=== PATIENT | male | born 1995 | race Caucasian/White ===

== ENCOUNTER 2018-01-21 23:22 | Emergency (ER) | payer OTHER ==
[2018-01-21 23:34] VITALS: BP 137/78
[2018-01-22 00:22] LABS: BILIRUBIN,URINE NEGATIVE (NEGATIVE); GLUCOSE, URINE (UA) NEGATIVE (NEGATIVE); KETONES,URINE (UA) NEGATIVE (NEGATIVE); LEUKOCYTE ESTERASE, URINE NEGATIVE (NEGATIVE); NITRITE,URINE NEGATIVE (NEGATIVE); OCCULT BLOOD,URINE NEGATIVE (NEGATIVE); PROTEIN,URINE NEGATIVE (NEGATIVE); UROBILINOGEN,URINE 0.2 (NORMAL) E.U./dL (NORMAL)
[2018-01-22 00:23] LABS: CLARITY,URINE CLEAR (CLEAR)
--- NOTE | 2018-01-22 01:07 | ED Physician Documentation ---
PD HPI MALE - Stated complaint Stated Complaint: MALE - Chief complaint Chief Complaint: General - History obtained from History obtained from: Patient - History of Present Illness Timing - onset: Today Timing - details: Gradual onset, Intermittant Associated symptoms: Testiclar pain PD HPI MALE CONTRIB FACTORS: Not sexually active Similar symptoms before: Has not had sx before Recently seen: Not recently seen - Additional information Additional information: patient is a 22 year old male with no significant past medical history who is presenting to the emergency for scrotal pain. patient states that his first episode was earlier this afternoon and last for a few minutes before going away. patient states that he had another episode this evening. He started to read online and became worried it could be torsion. he called the nurses line who told him to come to the emergency department immediately. patient is not currently sexually active. Review of Systems Ten Systems: 10 systems reviewed and negative : reports: Testicular pain. denies: Dysuria, Frequency, Testicular mass Skin: denies: Rash, Lesions PD PAST MEDICAL HISTORY - Past Medical History Past Medical History: No Cardiovascular: None Respiratory: None Neuro: None Endocrine/Autoimmune: None GI: None : None HEENT: None Psych: None Musculoskeletal: None Derm: None - Past Surgical History Past Surgical History: No - Allergies Allergies/Adverse Reactions: Allergies Allergy/AdvReac Type Severity Reaction Status Date / Time No Known Drug Allergies Allergy Verified 01/21/18 23:34 - Social History Does the pt smoke?: No Smoking Status: Never smoker Does the pt drink ETOH?: No Does the pt have substance abuse?: No - Immunizations Immunizations are current?: Yes - POLST Patient has POLST: No PD ED PE NORMAL - Vitals Vital signs reviewed: Yes - General General: Alert and oriented X 3, No acute distress - HEENT HEENT: Atraumatic - Cardiac Cardiac: RRR - Respiratory Respiratory: No respiratory distress - Abdomen Abdomen: Non tender - Derm Derm: Normal color - Extremities Extremities: No deformity - Neuro Neuro: Alert and oriented X 3 PD ED PE EXPANDED - Male Male : Normal Exam, Testes descended hector, Normal lie/cremastaric, Cultures sent. No: Skin lesions, Discharge, Tenderness Results - Vitals Vitals: Vital Signs - 24 hr 01/21/18 01/22/18 23:32 00:11 Temperature 37.0 C Heart Rate 92 Respiratory 17 17 Rate Blood Pressure 137/78 H O2 Saturation 96 Oxygen O2 Source Room air - Labs Labs: Laboratory Tests 01/22/18 00:10 Urine Color YELLOW Urine Clarity CLEAR Urine pH 6.0 Ur Specific [place] 1.025 Urine Protein NEGATIVE Urine Glucose (UA) NEGATIVE Urine Ketones NEGATIVE Urine Occult Blood NEGATIVE Urine Nitrite NEGATIVE Urine Bilirubin NEGATIVE Urine Urobilinogen 0.2 (NORMAL) Ur Leukocyte Esterase NEGATIVE Ur Microscopic Review NOT INDICATED Urine Culture Comments NOT INDICATED PD MEDICAL DECISION MAKING - ED course Complexity details: reviewed old records, reviewed results, re-evaluated patient , considered differential, d/w patient ED course: Patient was seen and examined at bedside. Urine was collected and ultrasound was ordered. When patient returned the results were reviewed and within normal limits. patient required no further inpatient work up at this time and was stable for discharge with outpatient follow up. - Sepsis Event Vital Signs: Vital Signs - 24 hr 01/21/18 01/22/18 23:32 00:11 Temperature 37.0 C Heart Rate 92 Respiratory 17 17 Rate Blood Pressure 137/78 H O2 Saturation 96 Oxygen O2 Source Room air Departure - Departure Disposition: 01 Home, Self Care Clinical Impression: Testicular pain, Varicocele present on ultrasound of scrotum Condition: Good Follow-Up: primary,care provider [Other] - Within 3 Days Comments: Your diagnostics today were within normal limits. there were no abnormalities on your urinalysis and no sign of torsion. You were found to have varicocele and you should wear supportive underwear. You should return to the emergency department for worsening symptoms.
--- NOTE | 2018-01-22 01:17 | Ultrasound Report ---
Procedure Date: 01/22/2018 Accession Number: [id number] / [id number] Procedure: US - Testicle w/Doppler CPT Code: FULL RESULT: EXAM: SCROTAL ULTRASOUND EXAM DATE: 01/22/2018 12:22 AM. CLINICAL HISTORY: Testicular pain. COMPARISON: None. TECHNIQUE: Real-time scanning was performed with static images obtained. Both color-flow and Doppler spectral analysis were utilized. FINDINGS: Right: Testis: 4.9 x 3.3 x 2.2 cm. Normal size and echotexture. No mass, calcification, or abnormal blood flow. Epididymis: 1.5 x 0.9 x 0.9 cm. Normal size and echotexture. No mass or abnormal blood flow. Hydrocele: Trace. Varicocele: None. Left: Testis: 4.7 x 2.6 x 1.9 cm. Normal size and echotexture. No mass, calcification, or abnormal blood flow. Epididymis: 1.1 x 1.1 x 0.6 cm. Normal size and echotexture. No mass or abnormal blood flow. Hydrocele: None. Varicocele: Varicosities are noted. IMPRESSION: 1. No evidence of testicular torsion. 2. Left-sided varicosities are noted. RADIA
== END 2018-01-22 01:30 | disposition home or self-care (01) ==
LOC: ED 23:22
DX: N50.819 Testicular pain, unspecified (principal); I86.1 Scrotal varices
CPT/HCPCS: 76870; 81001; 81003; 87086; 87491; 87591; 93975; 99283

== ENCOUNTER 2021-05-14 08:00 | Outpatient (CLI) | payer BC ==
[2021-05-14 21:02] LABS: BASOPHILS % (AUTO) 0.5 %; EOSINOPHILS % (AUTO) 0.7 %; HCT - HEMATOCRIT 42.2 % (42.0-52.0); HGB - HEMOGLOBIN 13.9 g/dL (14.0-18.0); LYMPHOCYTES # (AUTO) 1.4 10^3/uL (1.5-3.5); LYMPHOCYTES % (AUTO) 23.8 %; MEAN CORPUSCULAR HGB CONC 32.9 g/dL (32.0-36.0); MEAN CORPUSCULAR VOLUME 90.9 fL (80.0-94.0); MEAN PLATELET VOLUME 11.9 fL (7.4-11.4); MONOCYTES # (AUTO) 0.4 10^3/uL (0.0-1.0); MONOCYTES % (AUTO) 7.1 %; NEUTROPHILS # (AUTO) 3.9 10^3/uL (1.5-6.6); NEUTROPHILS % (AUTO) 67.6 %; PLT - PLATELET COUNT 219 10^3/uL (130-450); RED BLOOD COUNT 4.64 10^6/uL (4.70-6.10); RED CELL DISTRIBUTION WIDTH 12.4 % (12.0-15.0); WHITE BLOOD COUNT 5.8 x10^3/uL (4.8-10.8)
[2021-05-14 21:22] LABS: ALBUMIN 5.2 g/dL (3.2-5.5); ALBUMIN/GLOBULIN RATIO 2.1 (1.0-2.2); BILIRUBIN,TOTAL 1.2 mg/dL (0.2-1.0); CALCIUM 9.6 mg/dL (8.5-10.3); CREATININE 0.9 mg/dL (0.6-1.2); TOTAL PROTEIN 7.7 g/dL (6.7-8.2)
[2021-05-14 21:39] LABS: THYROID STIMULATING HORMONE 2.33 uIU/mL (0.34-5.60)
== END 2021-05-14 23:59 ==
LOC: LAB.N 08:00
PROVIDERS: ATTEND Family Medicine
DX: R00.2 Palpitations (principal)
CPT/HCPCS: 36415; 80053; 84443; 85025

== ENCOUNTER 2021-08-26 15:02 | Outpatient (CLI) | payer BC ==
--- NOTE | 2021-08-26 16:33 | XRAY Report ---
PROCEDURE: Knee 4 View LT INDICATIONS: STRAIN OF MUSCLES AND TENDONS OF L LOWER LEG TECHNIQUE: 4 views of the left knee(s) were acquired. COMPARISON: None. FINDINGS: BONES/JOINT: No acute, displaced fracture or dislocation. Small to moderate suprapatellar joint effus ion. SOFT TISSUES: No significant abnormality. IMPRESSION: 1.Small to moderate subpatellar joint effusion. Reviewed by: Leobardo Cuevas MD on 08/26/2021 4:32 PM PST Approved by: Leobardo Cuevas MD on 08/26/2021 4:32 PM PST Station ID: [id number]
== END 2021-08-26 23:59 | disposition home or self-care (01) ==
LOC: DI.N 15:02
PROVIDERS: ATTEND Nurse Practitioner
DX: S86.912A Strain of unspecified muscle(s) and tendon(s) at lower leg level, left leg, initial encounter (principal); M25.462 Effusion, left knee